=== PATIENT | female | born 1940 | race Caucasian/White ===

== ENCOUNTER → 2018-01-18 | Outpatient (CLI) | payer OTHER, MEDICARE | LOC: BHFA 09:15 | PROVIDERS: ATTEND Internal Medicine | DX: R94.31 Abnormal electrocardiogram [ECG] [EKG] (principal); I10 Essential (primary) hypertension ==

== ENCOUNTER → 2018-01-19 | Outpatient (CLI) | payer OTHER, MEDICARE | LOC: BHLMT 13:30 | PROVIDERS: ATTEND Internal Medicine Cardiovascular Disease | DX: Z01.810 Encounter for preprocedural cardiovascular examination (principal); R94.31 Abnormal electrocardiogram [ECG] [EKG] | CPT/HCPCS: 78452; 93017; A9500; J2785 ==

== ENCOUNTER 2018-01-25 07:49 | Day surgery (SDC) | payer OTHER, MEDICARE ==
[2018-01-25] MEDS ORDERED: DIAZEPAM 5 MG TAB PO ONE (07:51)
[2018-01-25] MEDS ORDERED: FAMOTIDINE 20 MG TAB PO ONE (07:51)
[2018-01-25] MEDS ORDERED: diphenhydrAMINE 25 MG CAP PO ONE (07:51)
[2018-01-25] MEDS ORDERED: ASPIRIN EC 325 MG TAB PO ONE (07:51)
[2018-01-25] MEDS ORDERED: NS 1,000 ML IV ONE (07:51)
--- NOTE | 2018-01-25 08:22 | CPEKG ---
Heart Rate: 58 RR Interval: 1034 P-R Interval: 180 QRSD Interval: 116 QT Interval: 456 QTC Interval: 448 P Cascade: 33 QRS Cascade: -21 EKG Severity - ABNORMAL ECG - EKG Impression: SINUS RHYTHM EKG Impression: LVH WITH IVCD AND SECONDARY REPOL ABNRM Preliminary Awaiting MD Review
[2018-01-25 08:42] LABS: PLATELET COUNT 249 10^3/uL (150-400)
[2018-01-25 08:53] LABS: INR 1.1 (0.83-1.16); PROTIME(PATIENT) 14.4 SEC (12.0-15.0)
[2018-01-25] MEDS ORDERED: LIDOCAINE 1% 300 MG/30 ML SDV ONE (09:05)
[2018-01-25] MEDS ORDERED: fentaNYL 100 MCG/2 ML INJ ONE (09:08)
[2018-01-25] MEDS ORDERED: MIDAZOLAM 2 MG/2 ML VIAL ONE (09:08)
[2018-01-25] MEDS ORDERED: HEPARIN 10,000 UNIT/10 ML MDV (1,000 UNIT/ML) ONE (09:09)
[2018-01-25] MEDS ORDERED: VERAPAMIL 5 MG/2 ML VIAL ONE (09:09)
[2018-01-25] MEDS ORDERED: IOPAMIDOL (ISOVUE-370) 150 ML BTL IV ONE (09:09)
--- NOTE | 2018-01-25 09:19 | PDHPUP ---
History & Physical Update H&P update statement: This history and physical update is based on an assessment of the patient which was completed after admission or registration (within 24 hours), but prior to the surgery/procedure. H&P update: H&P reviewed & patient examined, no change in patient's condition since H&P completed
--- NOTE | 2018-01-25 09:19 | PDPROPOC ---
Sedation Plan of Care Sedation Plan of Care: vital signs stable, mental status noted, patient educated of risks, benefits, alternatives, patient can tolerate sedation ASA Classification: ASA 1 Planned drugs: fentanyl, midazolam Mallampati Score: Class 1 Mallampati Reference Image: Patient passed 3-3-2 rule?: Yes
[2018-01-25] MEDS ORDERED: ONDANSETRON 4 MG/2 ML VIAL IVP PRN (10:17)
[2018-01-25] MEDS ORDERED: ATROPINE SULFATE 1 MG/10 ML SYR IVP PRN (10:17)
[2018-01-25] MEDS ORDERED: NITROGLYCERIN 0.4 MG BTL SL PRN (10:17)
[2018-01-25] MEDS ORDERED: OXYCODONE/APAP 5/325 TAB PO PRN (10:17)
[2018-01-25] MEDS ORDERED: HYDROCODONE/APAP 5/325 TAB PO PRN ×2 (10:17→13:08)
--- NOTE | 2018-01-25 10:27 | PDDXCAT ---
Diagnostic Cath Note - . Date: 01/25/18 Devil Dog: Jhonatan Indication: Class I/II angina, intolerance to med therapy or failure to respond , other (Intermediate risk stress myocardial perfusion imaging.) - Procedure Access: right groin Procedure: left heart catheterization, coronary angiography, left ventriculogram - Materials Left Heart Cath materials: standard multipack (JL4, JR4, pigtail) - Findings-Left Heart Catheterization LM: Moderate caliber vessel. Bifurcates into left anterior descending and circumflex distributions. Angiographically free of disease. LAD: Moderate caliber vessel proximally. Becomes a small caliber vessel toward the apex. 2 small caliber diagonal branches. Angiographically free of disease. LCX: Large caliber vessel. Dominant. For obtuse marginal branches and a posterolateral cascade noted. Angiographically free of disease. RCA: Small caliber. Non dominant. Angiographically free of disease. EDP: 15 mmHg. LVEF: 65-70%. Normal wall motion. Complications: None. Estimated blood loss: <50ml Closure method: manual pressure Assessment: 1. Angiographically normal epicardial coronary arteries with a left- dominant system. 2. Probable false-positive stress myocardial perfusion imaging study. 3. Normal left ventricular systolic function with normal end- diastolic pressure. 4. No cardiovascular etiology to explain the patient's dyspnea. Plan: Medical therapy for primary prevention. Intervention: None.
[2018-01-25 16:27] VITALS: BP 122/75; RESP 21; O2SAT 88
== END 2018-01-25 16:29 | disposition home or self-care (01) ==
LOC: FCATH 07:49
PROVIDERS: ATTEND Internal Medicine Cardiovascular Disease
DX: R94.39 Abnormal result of other cardiovascular function study (principal); R94.31 Abnormal electrocardiogram [ECG] [EKG]; R06.02 Shortness of breath; I10 Essential (primary) hypertension; I77.810 Thoracic aortic ectasia; I51.7 Cardiomegaly; I34.0 Nonrheumatic mitral (valve) insufficiency; I35.1 Nonrheumatic aortic (valve) insufficiency; I73.9 Peripheral vascular disease, unspecified; M19.90 Unspecified osteoarthritis, unspecified site; K58.9 Irritable bowel syndrome, unspecified; Z79.82 Long term (current) use of aspirin; Z87.891 Personal history of nicotine dependence; Z82.49 Family history of ischemic heart disease and other diseases of the circulatory system; Z96.612 Presence of left artificial shoulder joint; Z88.2 Allergy status to sulfonamides
CPT/HCPCS: 93005; 93458; C1769; J0461; J1644; J2250; J3010; Q9967